=== PATIENT | male | born 1990 | race Caucasian/White ===

== ENCOUNTER → 2017-11-17 | Outpatient (CLI) | payer MEDICARE, OTHER ==
[2017-11-17 09:30] LABS: Anion Gap 11 mmol/L; Blood Urea Nitrogen 15 mg/dL (9-20); Calcium 9.8 mg/dL (8.4-10.2); Carbon Dioxide 30 mmol/L (22-30); Chloride 102 mmol/L (98-107); Cholesterol 110 mg/dL (<200); Glucose 96 mg/dL (74-99); HDL Cholesterol 36 mg/dL (40-60); Potassium 4.3 mmol/L (3.5-5.1); Sodium 143 mmol/L (137-145)
[2017-11-17 10:00] LABS: LDL Cholesterol,Calculated 62 mg/dL (0-99); Triglycerides 61 mg/dL (<150)
[2017-11-17 17:44] LABS: Hemoglobin A1C 5.1 % (4.0-6.0)
== END | disposition home or self-care (01) ==
LOC: LABWHC1 08:46
PROVIDERS: ATTEND Nurse Practitioner Family
DX: D48.5 Neoplasm of uncertain behavior of skin (principal)
CPT/HCPCS: 36415; 80048; 80061; 83036; 83721

== ENCOUNTER → 2020-04-06 | Outpatient (CLI) | payer MEDICARE, OTHER ==
--- NOTE | 2020-04-16 08:41 | FL ---
EXAMINATION TYPE: FL barium swallow w video DATE OF EXAM: 04/06/2020 MODIFIED SWALLOW / DEGLUTITION STUDY CLINICAL HISTORY: Dysphagia. TECHNIQUE: Deglutition study is performed utilizing pudding. COMPARISON: None. FINDINGS: The oral and pharyngeal phases show satisfactory initiation and propagation with all modali ties tested. There is no evidence of penetration or aspiration with any modality tested. No signifi cant pharyngeal residue was appreciated. No images submitted. 21 seconds of fluoroscopy provided IMPRESSION: 1. No evidence of aspiration or
== END | disposition home or self-care (01) ==
LOC: RADFLMAIN 11:28 → EEVIPCON 11:30
PROVIDERS: ATTEND Internal Medicine
DX: K21.9 Gastro-esophageal reflux disease without esophagitis (principal)
CPT/HCPCS: 74230

== ENCOUNTER 2020-08-20 09:52 | Day surgery (SDC) | payer MEDICARE, OTHER ==
[2020-08-14 12:26] VITALS: BMI 18.3
[~2020-08-20 09:52] MED LIST: LACTATED RINGERS 1,000 ML IV SCH
[2020-08-20] MEDS ORDERED: LIDOCAINE 1% (10MG/ML) FOR IV START INTRADERMA ONE (10:35)
[2020-08-20] MEDS ORDERED: LIDOCAINE 1% INJ 10MG/ML (20 ML MDV) ONE (11:54)
[2020-08-20] MEDS ORDERED: PROPOFOL 10 MG/ML 20 ML VIAL IV ONE (11:54)
--- NOTE | 2020-08-20 12:14 | P.PCN ---
Date of Procedure: 08/20/20 Procedure(s) Performed: BRIEF HISTORY: Patient is a 30-year-old white male with history of mental retardation colonoscopy as a part of evaluation of evaluation of dysphagia for the last few months duration PROCEDURE PERFORMED: Esophagogastroduodenoscopy with biopsy and dilation PREOPERATIVE DIAGNOSIS: Dysphagia to solids. IV sedation per anesthesia. PROCEDURE: After informed consent was obtained, the patient was brought into the endoscopy unit. IV conscious sedation was administered by Anesthesia under continuous monitoring. Initially the Olympus GIF-140 video endoscope was inserted into the mouth. Esophagus intubated without any difficulty. It was gradually advanced into the stomach and duodenum and carefully examined. The bulb and the second part of the duodenum appeared normal. The scope at this time was withdrawn to the stomach, adequately insufflated with air, and upon careful examination, mucosa of the antrum, body, cardia and the fundus appeared normal. The scope was then withdrawn into the esophagus. The GE junction was located at 39 cm from the incisors. There was evidence esophageal stricture identified dilated using 15 mm balloon for 30 seconds. There was brisk oozing with small mucosal tear and hence further dilation was not performed. There were multiple linear erosions noted in the mid and distal esophagus consistent with LA grade B reflux esophagitis. The rest of the esophagus appeared normal. The patient tolerated the procedure well. IMPRESSION: 1. Distal esophageal stricture status post balloon dilation using 15 mm TTS balloon for 30 seconds. 2.. The area Erosions in the distal esophagus consistent with LA grade B reflux esophagitis RECOMMENDATIONS: The findings of this examination were discussed with the patient as well as his family. He will remain on a clear liquid diet for lunch today. He will be started on omeprazole 20 mg twice daily for severe gastroesophageal reflux esophagitis.
[2020-08-20 12:24] VITALS: RESP 16
[2020-08-20 12:31] VITALS: TEMP 98.6
[2020-08-20 12:32] VITALS: BP 114/71; PULSE 83
== END 2020-08-20 12:51 | disposition other institution (70) ==
LOC: ORWHC2ENDO 09:52
PROVIDERS: ATTEND Internal Medicine Gastroenterology
DX: K22.2 Esophageal obstruction (principal); K22.10 Ulcer of esophagus without bleeding; G80.9 Cerebral palsy, unspecified; I10 Essential (primary) hypertension; Z79.899 Other long term (current) drug therapy; Z98.890 Other specified postprocedural states
CPT/HCPCS: 88305; 43239; 43249; J2001; J2704; C1726